=== PATIENT | female | born 1970 | race American Indian/Alaskan Native ===

== ENCOUNTER 2017-06-03 09:02 | Day surgery (SDC) | payer BC ==
[2017-06-02 10:57] LABS: Basophils % (Auto) 0.6 % (0.0-1.8); Eosinophils # (Auto) 0.1 K/mm3 (0.0-0.4); Eosinophils % (Auto) 1.5 % (0.0-4.3); Hematocrit 31.1 % (30.3-42.9); Hemoglobin 9.7 gm/dl (10.1-14.3); Lymphocytes # (Auto) 0.9 K/mm3 (1.2-5.4); Lymphocytes % (Auto) 18.8 % (13.4-35.0); Mean Corpuscular HGB Conc 31 % (30-34); Monocytes # (Auto) 0.4 K/mm3 (0.0-0.8); Monocytes % (Auto) 8.1 % (0.0-7.3); Platelet Count 254 K/mm3 (140-440); Red Blood Count 4.48 M/mm3 (3.65-5.03); Red Cell Distribution Width 17.5 % (13.2-15.2)
--- NOTE | 2017-06-02 11:06 | Anesthesia Consultation ---
Anesthesia Consult and Med Hx Date of service: 06/03/17 - Airway Anesthetic Teeth Evaluation: Good ROM Head & Neck: Adequate Mental/Hyoid Distance: Adequate Mallampati Class: Class II Intubation Access Assessment: Probably Good - Pre-Operative Health Status ASA Pre-Surgery Classification: ASA3 Proposed Anesthetic Plan: General - Pulmonary Hx Smoking: No Hx Sleep Apnea: No - Cardiovascular System Hx Hypertension: Yes (previously on meds) - Central Nervous System Hx Psychiatric Problems: No - Hematic Hx Anemia: Yes - Other Systems Hx Cancer: No
[2017-06-02 11:12] LABS: Alanine Aminotransferase 15 units/L (7-56); Albumin 3.9 g/dL (3.9-5); BUN/Creatinine Ratio 18; Blood Urea Nitrogen 9 mg/dL (7-17); Calcium 8.8 mg/dL (8.4-10.2); Hemolysis Index 2
[2017-06-02 11:13] LABS: Mean Corpuscular Hemoglobin 22 pg (28-32); Mean Corpuscular Volume 69 fl (79-97)
[~2017-06-03 09:02] MED LIST: LACTATED RINGERS 1,000 ML IV SCH; PEPCID PO NR; VERSED IV NR
[2017-06-03] MEDS ORDERED: SILVER NITRATE TP ONE (10:49)
[2017-06-03] MEDS ORDERED: XYLOCAINE MPF 2% ONE (10:56)
[2017-06-03] MEDS ORDERED: DIPRIVAN 10 MG/ML IV ONE (10:56)
[2017-06-03] MEDS ORDERED: DILAUDID ONE (10:57)
[2017-06-03] MEDS ORDERED: PEPCID PO NR (11:00)
[2017-06-03] MEDS ORDERED: VERSED IV NR (11:00)
--- NOTE | 2017-06-03 11:03 | Anesthesia Day of Surgery ---
Anesthesia Day of Surgery - Day of Surgery Patient Examined: Yes Patient H&P Reviewed: Yes Patient is NPO: Yes
[2017-06-03] MEDS ORDERED: ZOFRAN ONE (11:45)
[2017-06-03] MEDS ORDERED: DECADRON ONE (11:46)
[2017-06-03] MEDS ORDERED: TORADOL ONE (11:46)
[2017-06-03] MEDS ORDERED: NACL 0.9% IR ONE ×2 (11:47)
[2017-06-03] MEDS ORDERED: LACTATED RINGERS 1,000 ML ONE (12:03)
--- NOTE | 2017-06-03 13:49 | Operative Report ---
Operative Report Operative Report: Preoperative diagnosis: 1. Menometrorrhagia 2. Thickened endometrium. Postoperative diagnosis: same as preoperative diagnosis Procedure: 1. Hysteroscopy 2. Dilatation and curettage 3. Endometrial polypectomy. Anesthesia: General with LMA Surgeon: Dr. Alberta Rodrigueztant: none Complications: none IV fluids: RL 1 liter EBL: 15 cc Procedure details: Risks, benefits, and alternatives of the procedure were discussed in detail with the patient which included but not limited to the risk of infection, hemorrhage requiring blood transfusion, and uterine perforation. The patient expressed understanding, her questions were answered, and she gave informed consent. The patient was taken to the operating room with an IV fluid and infusing Ringer 's lactated. In the operating room, she was placed in a dorsal supine position. She was given anesthesia with LMA. Then, she was placed in a dorsolithotomy position. The perineum, vagina, and cervix were washed and she was prepared and draped in usual sterile fashion. Examination under anesthesia revealed normal external genitalia and vagina, the cervix was closed long and posterior, no gross lesions, no bleeding. The uterus was 12 weeks' size, globular, and mobile. The adnexa were nonpalpable. A weighted speculum was placed on the posterior vaginal wall. The anterior lip of the cervix was grasped with a single-tooth tenaculum. Endocervical curettage was done. The cervical os was dilated and then the hysteroscope was introduced into the uterine cavity up to the fundus. It revealed a thickened endometrial lining, the ostia were visualized. A small endometrial polyp was seen on the left side of the endometrial cavity. The scope was removed from the uterine cavity. A gentle curettage was performed until a gritty texture was noticed. The polyp was removed with a forceps. The instruments were removed from the uterus cervix and vagina. The specimen which consisted of endocervical curettage, endometrial curettage, and endometrial polyps with Pathology. The patient tolerated the procedure well. She was taken to the recovery room in stable condition.
--- NOTE | 2017-06-03 15:26 | Post Anesthesia Evaluation ---
- Post Anesthesia Evaluation Patient Participated: Yes Airway Patent: Yes Stable Respiratory Function: Yes Nausea/Vomiting: No Temp > 96.8F: Yes Pain Manageable: Yes Adequeate Hydration: Yes Anesthesia Complications: No Block Receding Appropriately: Not Applicable Patient on Ventilator: No
[2017-06-03 19:54] VITALS: BP 138/96
== END 2017-06-03 15:50 | disposition home or self-care (01) ==
LOC: OR 09:02
PROVIDERS: ATTEND Obstetrics & Gynecology
DX: N84.0 Polyp of corpus uteri (principal); N85.01 Benign endometrial hyperplasia; I10 Essential (primary) hypertension; E66.9 Obesity, unspecified; Z68.39 Body mass index [BMI] 39.0-39.9, adult; Z98.890 Other specified postprocedural states; Z98.51 Tubal ligation status; Z88.5 Allergy status to narcotic agent
CPT/HCPCS: 36415; 58558; 80053; 84703; 85025; 88305; A4217; J1100; J1170; J1885; J2250; J2405; J2704; J7120